=== PATIENT | male | born 1990 | race Caucasian/White ===

== ENCOUNTER 2020-12-16 22:10 | Emergency (ER) | payer MEDICAID ==
[~2020-12-16] VITALS: Ht 167.6 cm; Wt 68.0 kg
[2020-12-16 22:30] LABS: BASOPHILS % 0.3 % (0.0-2.0); EOSINOPHILS % 3.4 % (0.0-5.0); HEMATOCRIT. 41.1 % (42.0-52.0); LYMPHOCYTES % 52.5 % (20.0-50.0); MEAN CORPUSCULAR HEMOGLOBIN 33.2 pg (28.0-32.0); MEAN CORPUSCULAR VOLUME 97.8 fL (80.0-94.0); MEAN PLATELET VOLUME 8.5 fl (7.4-10.4); MONOCYTES % 11.3 % (2.0-8.0); NEUTROPHILS % 32.5 % (40.0-76.0); PLATELET 336 x1000/uL (130-400); RED BLOOD CELL COUNT 4.21 mill/uL (4.7-6.1); RED CELL DISTRIBUTION WIDTH 13.2 % (11.6-14.6)
[2020-12-16 22:35] LABS: CHLORIDE 105 mEq/L (98-107)
[2020-12-16] MEDS ORDERED: TETANUS, DIPHTHERIA, PERTUSSIS VAC/PF 0.5ML (>7YR OLD) IM ONE (23:00)
[2020-12-16] MEDS ORDERED: HYDROMORPHONE HCL/PF 2MG/ML CPJ IV ONE (23:15)
[2020-12-16 23:23] LABS: PROTHROMBIN TIME 10.5 sec (9.6-11.0)
[2020-12-16 23:25] LABS: CLARITY URINE CLEAR (CLEAR); COLOR URINE YELLOW (YELLOW); KETONES URINE NEGATIVE (NEGATIVE); LEUKOCYTE ESTERASE URINE NEGATIVE (NEGATIVE); NITRITE URINE NEGATIVE (NEGATIVE); OCCULT BLOOD URINE NEGATIVE (NEGATIVE); PH URINE 5.5 (4.5-8.0); PROTEIN URINE NEGATIVE (NEGATIVE); SPECIFIC GRAVITY URINE 1.049 (1.005-1.030); UROBILINOGEN URINE 0.2 E.U./dL (0.2-1.0)
[2020-12-16] MEDS ORDERED: CEFAZOLIN 1000MG PREMIX 50 ML IV ONE (23:30)
[2020-12-16] MEDS ORDERED: IOHEXOL-350 100 ML BOTTLE ONE (23:30)
[2020-12-16] MEDS ORDERED: GENTAMICIN 100MG PREMIX 100 ML IV ONE (23:45)
[2020-12-17] MEDS ORDERED: GENTAMICIN SULFATE IV SCH
[2020-12-17] MEDS ORDERED: CEFAZOLIN 2000MG PREMIX 50 ML IV SCH
[2020-12-17] MEDS ORDERED: DEXT 5% IV SCH
[2020-12-17] MEDS ORDERED: CEFAZOLIN 2,000 MG in DEXT 5% WATER 100 ML IV SCH
[2020-12-17] MEDS ORDERED: WATER IV SCH
[2020-12-17] MEDS ORDERED: CEFAZOLIN SODIUM 1000MG/VIAL ONE (00:10)
[2020-12-17] MEDS ORDERED: HYDROMORPHONE HCL/PF 2MG/ML CPJ IV ONE (01:30)
[2020-12-17] MEDS ORDERED: ONDANSETRON HCL 4MG/2ML INJ IV ONE (03:45)
[2020-12-17] MEDS: MORPHINE SULFATE 4 MG/ML CPJ (NOT FOR IM USE) IV PRN ×2 (03:46→13:08)
[2020-12-17] MEDS ORDERED: MORPHINE SULFATE 4 MG/ML CPJ (NOT FOR IM USE) IV ONE ×2 (08:00→10:45)
[2020-12-17 13:12] VITALS: BP 119/72
== END 2020-12-17 13:30 | disposition short-term general hospital (02) ==
LOC: ER 22:10
DX: S71.142A Puncture wound with foreign body, left thigh, initial encounter (principal); M12.562 Traumatic arthropathy, left knee; X95.9XXA Assault by unspecified firearm discharge, initial encounter; Y93.89 Activity, other specified; Y92.89 Other specified places as the place of occurrence of the external cause; Z86.19 Personal history of other infectious and parasitic diseases; D72.829 Elevated white blood cell count, unspecified; R74.01 Elevation of levels of liver transaminase levels
CPT/HCPCS: 36415; 71045; 73552; 73706; 74177; 80053; 81003; 85025; 85610; 86850; 86900; 86901; 90471; 90715; 96365; 96375; 96376; 99291; J0690; J1170; J1580; J2270; J2405; J7060; Q9967

== ENCOUNTER 2022-09-14 06:12 | Emergency (ER) | payer MEDICAID ==
[~2022-09-14] VITALS: Ht 172.7 cm; Wt 68.0 kg
[2022-09-14] MEDS ORDERED: ONDANSETRON HCL 4MG/2ML INJ IV STA (06:23)
[2022-09-14] MEDS ORDERED: KETOROLAC 30MG/ML VIAL IV STA (06:23)
[2022-09-14] MEDS ORDERED: SODIUM CHLORIDE 0.9% 1,000 ML IV ONE (06:30)
[2022-09-14 07:14] LABS: BASOPHILS % 0.3 % (0.0-2.0); HEMATOCRIT. 42.9 % (42.0-52.0); HEMOGLOBIN. 14.7 g/dL (14.0-18.0); LYMPHOCYTES % 8.5 % (20.0-50.0); MEAN CORPUSCULAR VOLUME 93.4 fL (80.0-94.0); MEAN PLATELET VOLUME 7.7 fl (7.4-10.4); NEUTROPHILS % 86.2 % (40.0-76.0); PLATELET 355 x1000/uL (130-400); RED CELL DISTRIBUTION WIDTH 12.6 % (11.6-14.6)
[2022-09-14 07:19] LABS: PROTHROMBIN TIME 10.9 sec (9.6-11.0)
[2022-09-14 07:25] LABS: CHLORIDE 103 mEq/L (98-107)
[2022-09-14] MEDS ORDERED: ONDANSETRON HCL 4MG/2ML INJ IV ONE (08:15)
[2022-09-14] MEDS ORDERED: METOCLOPRAMIDE HCL 10MG/2ML VIAL IV ONE (10:45)
[2022-09-14] MEDS ORDERED: CLONIDINE 0.1MG TABLET PO PRN (11:30)
[2022-09-14] MEDS ORDERED: DOCUSATE SODIUM 100MG CAPSULE PO PRN (11:30)
[2022-09-14] MEDS ORDERED: GUAIFENESIN 200MG/10ML SUGAR FREE UDC PO PRN (11:30)
[2022-09-14] MEDS ORDERED: ACETAMINOPHEN 325MG TABLET PO PRN ×2 (11:30)
[2022-09-14] MEDS ORDERED: ONDANSETRON HCL 4MG/2ML INJ IV PRN (11:30)
[2022-09-14] MEDS ORDERED: LORAZEPAM 0.5MG TABLET PO PRN (11:30)
[2022-09-14] MEDS ORDERED: IPRATROPIUM/ALBUTEROL 0.5-3(2.5)MG/3ML NEB HHN PRN (11:30)
[2022-09-14] MEDS ORDERED: DEXT 5%/0.45% NACL 1000ML 1,000 ML IV SCH (11:30)
[2022-09-14 12:55] LABS: T4 FREE 1.28 ng/dL (0.76-1.46)
[2022-09-14 16:00] VITALS: BP 117/74
== END 2022-09-14 21:54 | disposition left against medical advice (07) ==
LOC: ER 06:12 → EDBEDREQTM 08:49 → EDBEDREQ 08:49 → CANBEDREQ 21:53 → ER 21:54
DX: R11.2 Nausea with vomiting, unspecified (principal); R10.9 Unspecified abdominal pain
CPT/HCPCS: 36415; 74176; 80053; 80061; 82150; 83036; 83690; 84439; 84443; 85025; 85610; 96361; 96374; 96375; 96376; 99285; J1885; J2405; J2765; J7030; Z7610; 96365; 96366